=== PATIENT | male | born 1980 | race Caucasian/White ===

== ENCOUNTER 2022-03-12 00:15 | Inpatient (IN) | payer MEDICARE, MEDICAID, SELFPAY ==
[2022-03-12 00:16] VITALS: BP 128/77; PULSE 73; RESP 18; TEMP 36.6; O2SAT 96; BMI 33.5
[2022-03-12 00:42] LABS: Basophils % 0.3 %; Eosinophils # 0.1 10^3/uL (0.0-0.8); Hemoglobin 13.6 g/dL (11.7-16.6); Lymphocytes # 2.4 10^3/uL (0.8-4.8); Lymphocytes % 23.3 %; Mean Corpuscular Hemoglobin 32.4 pg (28.0-34.0); Mean Corpuscular Volume 95.2 fl (80-94); Mean Platelet Volume 10.4 fL (7.4-10.4); Monocytes # 0.7 10^3/uL (0.2-0.9); Monocytes % 6.9 %; Neutrophils # 7.01 10^3/uL (1.8-7.7); Neutrophils % 68.1 %; Nucleated Red Blood Cells % 0 %; Platelet Count 210 10^3/cmm (130-400); Red Cell Distribution Width 13.4 % (12.1-15.1); White Blood Count 10.3 10^3/uL (4.0-10.0)
--- NOTE | 2022-03-12 00:51 | ED.C_ITS ---
Documented by User: SEE Dunne 03/12/22 01:25 HPI - Psych General: Chief Complaint: Psychiatric Symptoms Stated Complaint: Anxiety/SI Time Seen by Provider: 03/12/22 00:28 History of Present Illness: Patient is a 41-year-old male comes to the ED via EMS with SI and anxiety. Patient states he has a history of depression and anxiety. He was recently on trazodone but has stopped taking it. He endorses having past suicide attempts. Today his girlfriend broke up with him and kicked him out of the house. He states over the past month his girlfriend has caused him a lot of stress. He is very sad about the break-up and was planning to kill himself tonight by slitting his wrist and jumping off a bridge. Denies any recent alcohol or drug use. 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 Denies any HI, auditory or visual hallucinations. Associated symptoms: Reports depression and suicidal ideation; Deny auditory hallucinations, visual hallucinations or homicidal ideation Review of Systems Const: Denies: fever(s), chills or fatigue Eyes: Denies: change in vision or eye discomfort ENMT: Denies: throat pain, odynophagia, nasal discharge or nasal congestion Card: Denies: chest pain, palpitations, edema, swelling of feet/ankles, dyspnea on exertion or orthopnea Resp: Denies: dyspnea, productive cough or non-productive cough GI: Denies: abdominal pain, nausea, vomiting, diarrhea, constipation or hematochezia : Denies: flank pain, difficulty urinating, dysuria or hematuria Musc: Denies: neck pain, back pain or extremity swelling Skin/Breast: Denies: rash or new lesions Neuro: Denies: headache(s), numbness in extremities or weakness in extremities Psych: Reports: anxiety, depression and suicidal ideation; Denies: visual hallucinations, auditory hallucinations or homicidal ideation [facility] ED PFSH: Medical History (Updated 04/04/22 @ 17:46 by Brooks Hollis MD) History of anxiety History of depression Surgical History (Updated 03/12/22 @ 00:54 by SEE Dunne) No pertinent past surgical history Physical Exam Const: COMMON NORMALS: patient oriented x3 and alert GENERAL APPEARANCE: cooperative HENMT: COMMON NORMALS: normocephalic HEAD & SCALP: normocephalic MOUTH: Normal oral and palatal mucosa present THROAT: posterior oropharynx normal and uvula midline Neck/C-Spine: COMMON NORMALS: supple GENERAL: Yes normal visual inspection Resp: COMMON NORMALS: normal respiratory effort, No retractions, No use of accessory muscles and clear to auscultation bilaterally AUSCULTATION: clear to auscultation bilaterally Cardio: COMMON NORMALS: regular rate, regular rhythm, S1 normal heart sound present, S2 normal heart sound present, No gallops present (Cardio), No clicks present (Cardio), No murmurs present (Cardio) and Peripheral pulses 2+ thr oughout RATE: regular rate RHYTHM: regular rhythm HEART SOUNDS: S1 normal heart sound present and S2 normal heart sound present PERIPHERAL PULSES: Peripheral pulses 2+ throughout GI: COMMON NORMALS: Normal to inspection, nondistended, normoactive bowel sounds present, Soft to palpation, non-tender and no masses PALPATION: Yes Soft to palpation : COMMON NORMALS: Yes no CVA tenderness BLADDER/KIDNEY EXAM: Yes no CVA tenderness Back/Pelvis: COMMON NORMALS: no CVA tenderness Extremity: COMMON NORMALS: normal to inspection Neuro: COMMON NORMALS: patient oriented x3 SENSORIUM/ORIENTATION: Yes alert GAIT: Yes Normal gait present Psych: COMMON NORMALS: mental status grossly normal, Normal thought process present, cooperative, speech normal, activity/motor behavior normal, denies hallucinations and denies homicidal ideation APPEARANCE: Yes grossly normal ATTITUDE: Yes calm ACTIVITY/MOTOR BEHAVIOR: Yes appropriate eye contact SPEECH: Yes normal speech MOOD & AFFECT: Yes sad and Yes tearful THOUGHT PROCESS: Normal thought process present THOUGHT CONTENT: Yes Suicidality present, No Homicidality present and No Hallucination(s) present ATTENTION/CONCENTRATION: Yes attention grossly intact and Yes concentration grossly intact MEMORY/COGNITION: Yes memory grossly intact and Yes cognition grossly intact Skin: GENERAL SKIN EXAM: dry skin Course Vital Signs: Vital signs: Vital Signs Temperature 98.2 F 03/14/22 12:41 Pulse Rate 58 L 03/14/22 12:41 Respiratory Rate 18 03/14/22 12:41 Blood Pressure 141/80 03/14/22 12:41 Pulse Oximetry 99 03/14/22 12:41 Oxygen Delivery La thod 03/14/22 06:00 [facility] - Psych Medical Decision Making Patient is a 41-year-old male comes to the ED with anxiety and SI. I performed the initial history, physical exam and lab work-up of patient. Patient care was then signed over to Dr. Hollis to manage care and dispo of patient.-Antonio Cervantes Lab Data I reviewed the patient's lab results. : 03/12/22 00:27 03/12/22 00: Laboratory Results WBC 10.3 10^3/uL (4.0-10.0) H 03/12/22 00:27 RBC 4.20 10^6/uL (4.1-5.3) 03/12/22 00: Hgb 13.6 g/dL (11.7-16.6) 03/12/22: Hct 40.0 % (42.0-52.0) L 03/12/22 00: MCV 95.2 fl (80-94) H 03/12/22 00: MCH 32.4 pg (28.0-34.0) 03/12/22 00: MCHC 34.0 g/dL (30.0-36.0) 03/12/22 00: RDW 13.4 % (12.1-15.1) 03/12/22: Plt Count 210 10^3/cmm (130-400) 03/12/22: MPV 10.4 fL (7.4-10.4) 03/12/22 00: Neut % (Auto) 68.1 % 03/12/22: Lymph % (Auto) 23.3 % 03/12/22:27 Sebastian % (Auto) 6.9 % 03/12/22 00:27 Eos % (Auto) 1.0 % 03/12/22 00:27 Baso % (Auto) 0.3 % 03/12/22 00:27 Neut # (Auto) 7.01 10^3/uL (1.8-7.7) 03/12/22 00: Lymph # (Auto) 2.4 10^3/uL (0.8-4.8) 03/12/22 00:27 Sebastian # (Auto) 0.7 10^3/uL (0.2-0.9) 03/12/22 00:27 Eos # (Auto) 0.1 10^3/uL (0.0-0.8) 03/12/22: Baso # (Auto) 0.0 10^3/uL (0.0-0.1) 03/12/22 00: Nucleated RBC % (auto) 0 % 03/12/22 Nucleated RBCs # 0.0 /100WBC 03/12/22: Sodium 140 mmol/L (136-145) 03/12/22: Potassium 3.6 mmol/L (3.5-5.1) 03/12/22: Chloride 107 mmol/L (98-107) 03/12/22: Carbon Dioxide 23 mmol/L (22-29) 03/12/22 Anion Gap 13.6 (5-19) 03/12/22 BUN 12 mg/dL (6-20) 03/12/22: Creatinine 0.7 mg/dL (0.7-1.2) 03/12/22 GFR Calculation 124.3 mL/min (90-130) 03/12/22 Glucose 123 mg/dL (65-115) H 03/12/22: Calculated Osmolality 291 mOsm/kg (285-295) 03/12/22 Calcium 8.4 mg/dL (8.5-10.5) L 03/12/22: Total Bilirubin 0.5 mg/dL (0.15-1.2) 03/12/22: AST 27 U/L (0-40) 03/12/22: ALT 37 U/L (0-41) 03/12/22: Alkaline Phosphatase 78 U/L (40-130) 03/12/22: Total Protein 6.9 g/dL (6.6-8.7) 03/12/22: Albumin 4.0 g/dL (3.5-5.2) 03/12/22: Globulin 2.9 g/dL (1.3-4.6) 03/12/22: Urine Color Yellow (Yellow) 03/12/22: Urine Appearance Clear (CLEAR) 09/16/22 00:27 Urine pH 5 (5-7) 03/12/22 00:27 Ur Specific [place] 1.020 (1.005-1.030) 03/12/22 00:27 Urine Protein Neg (Negative) 03/12/22 00:27 Urine Glucose (UA) Norm (Normal) 03/12/22 00:27 Urine Ketones Negative (Negative) 03/12/22 00:27 Urine Blood Neg (Negative) 03/12/22 00:27 Urine Nitrate Negative (Negative) 03/12/22 00:27 Urine Bilirubin Neg (Negative) 03/12/22 00:27 Urine Urobilinogen 1 mg/dL (Negative) H 03/12/22 00:27 Ur Leukocyte Esterase Negative (Negative) 03/12/22 00:27 Salicylates < 0.3 mg/dL (3-10) L 03/12/22 00:27 Urine Opiates Screen Negative ng/mL (Negative) 03/12/22 00:27 Acetaminophen < 5.0 ug/mL (10-30) L 03/12/22 00:27 Ur Barbiturates Screen Negative ng/mL (Negative) 03/12/22 00:27 Ur Phencyclidine Scrn Negative ng/mL (Negative) 03/12/22 00:27 Ur Amphetamines Screen Negative ng/mL (Negative) 03/12/22 00:27 U Benzodiazepines Scrn Negative ng/mL (Negative) 03/12/22 00:27 Urine Cocaine Screen Negative ng/mL (Negative) 03/12/22 00:27 U Marijuana (THC) Screen Positive ng/mL (Negative) H 03/12/22 00:27 Ethyl Alcohol 14 mg/dL (0-10) H 03/12/22 00:27 Discharge Plan Discharge Patient Disposition: Admitted As Inpatient Admit Provider: Gustavo Ortega Clinical Impression: Suicidal ideation Condition: Stable Discharge Diet: Regular Discharge Activity: Resume usual activity Sign Out Sign Out Data: Patient Sign Out occurred on 03/12/22 at 01:18. Patient's care was discussed, and care was transferred from to Brooks Hollis MD. Coding Level of Care Code ED Cost Control Supervisor for Chg Fwd Exam Comprehensive Documented by User: Brooks Hollis MD 04/04/22 17:46 HPI - Psych General: Chief Complaint: Psychiatric Symptoms Stated Complaint: Anxiety/SI Time Seen by Provider: 03/12/22 00:28 [facility] ED PFSH: Medical History (Updated 04/04/22 @ 17:46 by Brooks Hollis MD) History of anxiety History of depression Surgical History (Updated 03/12/22 @ 00:54 by SEE Dunne) No pertinent past surgical history Course Vital Signs: Vital signs: Vital Signs Temperature 98.2 F 03/14/22 12:41 Pulse Rate 58 L 03/14/22 12:41 Respiratory Rate 18 03/14/22 12:41 Blood Pressure 141/80 03/14/22 12:41 Pulse Oximetry 99 03/14/22 12:41 Oxygen Delivery Me thod 03/14/22 06:00 [facility] - Psych Medical Decision Making Patient is a 41-year-old male comes to the ED with anxiety and SI. I performed the initial history, physical exam and lab work-up of patient. Patient care was then signed over to Dr. Hollis to manage care and dispo of patient.-Antonio Cervantes I discussed this case with Antonio CUI. I personally saw and evaluated the patient and reperformed guzmán portions of E/M. I reviewed documentation. Brooks Hollis MD Emergency Medicine Lab Data : 03/12/22 00:27 03/12/22 00:27 Laboratory Results WBC 10.3 10^3/uL (4.0-10.0) H 03/12/22 00:27 RBC 4.20 10^6/uL (4.1-5.3) 03/12/22 00:27 Hgb 13.6 g/dL (11.7-16.6) 03/12/22 00:27 Hct 40.0 % (42.0-52.0) L 03/12/22 00:27 MCV 95.2 fl (80-94) H 03/12/22 00:27 MCH 32.4 pg (28.0-34.0) 03/12/22 00:27 MCHC 34.0 g/dL (30.0-36.0) 03/12/22 00: RDW 13.4 % (12.1-15.1) 03/12/22: Plt Count 210 10^3/cmm (130-400) 03/12/22 00: MPV 10.4 fL (7.4-10.4) 03/12/22 00: Neut % (Auto) 68.1 % 03/12/22: Lymph % (Auto) 23.3 % 03/12/22: Sebastian % (Auto) 6.9 % 03/12/22: Eos % (Auto) 1.0 % 03/12/22 00: Baso % (Auto) 0.3 % 03/12/22: Neut # (Auto) 7.01 10^3/uL (1.8-7.7) 03/12/22: Lymph # (Auto) 2.4 10^3/uL (0.8-4.8) 03/12/22: Sebastian # (Auto) 0.7 10^3/uL (0.2-0.9) 03/12/22: Eos # (Auto) 0.1 10^3/uL (0.0-0.8) 03/12/22: Baso # (Auto) 0.0 10^3/uL (0.0-0.1) 03/12/22 00: Nucleated RBC % (auto) 0 % 03/12/22: Nucleated RBCs # 0.0 /100WBC 03/12/22: Sodium 140 mmol/L (136-145) 03/12/22 00: Potassium 3.6 mmol/L (3.5-5.1) 03/12/22: Chloride 107 mmol/L (98-107) 03/12/22: Carbon Dioxide 23 mmol/L (22-29) 03/12/22: Anion Gap 13.6 (5-19) 03/12/22: BUN 12 mg/dL (6-20) 03/12/22 00: Creatinine 0.7 mg/dL (0.7-1.2) 03/12/22: GFR Calculation 124.3 mL/min (90-130) 03/12/22: Glucose 123 mg/dL (65-115) H 03/12/22: Calculated Osmolality 291 mOsm/kg (285-295) 03/12/22: Calcium 8.4 mg/dL (8.5-10.5) L 03/12/22: Total Bilirubin 0.5 mg/dL (0.15-1.2) 03/12/22: AST 27 U/L (0-40) 03/12/22: ALT 37 U/L (0-41) 03/12/22: Alkaline Phosphatase 78 U/L (40-130) 03/12/22: Total Protein 6.9 g/dL (6.6-8.7) 03/12/22: Albumin 4.0 g/dL (3.5-5.2) 03/12/22: Globulin 2.9 g/dL (1.3-4.6) 03/12/22: Urine Color Yellow (Yellow) 03/12/22: Urine Appearance Clear (CLEAR) 03/12/22: Urine pH 5 (5-7) 03/12/22: Ur Specific [place] 1.020 (1.005-1.030) 03/12/22: Urine Protein Neg (Negative) 03/12/22: Urine Glucose (UA) Norm (Normal) 03/12/22: Urine Ketones Negative (Negative) 03/12/22: Urine Blood Neg (Negative) 03/12/22: Urine Nitrate Negative (Negative) 03/12/22: Urine Bilirubin Neg (Negative) 03/12/22: Urine Urobilinogen 1 mg/dL (Negative) H 03/12/22: Ur Leukocyte Esterase Negative (Negative) 03/12/22: Salicylates < 0.3 mg/dL (3-10) L 03/12/22: Urine Opiates Screen Negative ng/mL (Negative) 03/12/22: Acetaminophen < 5.0 ug/mL (10-30) L 03/12/22: Ur Barbiturates Screen Negative ng/mL (Negative) 03/12/22 00:27 Ur Phencyclidine Scrn Negative ng/mL (Negative) 03/12/22 00:27 Ur Amphetamines Screen Negative ng/mL (Negative) 03/12/22 00:27 U Benzodiazepines Scrn Negative ng/mL (Negative) 03/12/22 00:27 Urine Cocaine Screen Negative ng/mL (Negative) 03/12/22 00:27 U Marijuana (THC) Screen Positive ng/mL (Negative) H 03/12/22 00:27 Ethyl Alcohol 14 mg/dL (0-10) H 03/12/22 00:27 Discharge Plan Discharge Patient Disposition: Admitted As Inpatient Admit Provider: Gustavo Ortega Clinical Impression: Suicidal ideation Condition: Stable Discharge Diet: Regular Discharge Activity: Resume usual activity Sign Out Sign Out Data: Patient Sign Out occurred on 03/12/22 at 01:18. Patient's care was discussed, and care was transferred from to Brooks Hollis MD. Coding Level of Care Code ED Cost Control Supervisor for Eric Fwd Exam Comprehensive
[2022-03-12 00:58] LABS: Add Urine Microscopic? NO; Charge for UA Resulting for Rev
[2022-03-12 01:00] LABS: Alanine Aminotransferase 37 U/L (0-41); Alcohol Level 14 mg/dL (0-10); Alkaline Phosphatase 78 U/L (40-130); Anion Gap 13.6 (5-19); Aspartate Amino Transferase 27 U/L (0-40); Blood Urea Nitrogen 12 mg/dL (6-20); Calcium 8.4 mg/dL (8.5-10.5); Carbon Dioxide 23 mmol/L (22-29); Chloride 107 mmol/L (98-107); Globulin 2.9 g/dL (1.3-4.6); Glomerular Filtration Rate 124.3 mL/min (90-130); Glucose 123 mg/dL (65-115); Osmolality Calculated 291 mOsm/kg (285-295); Potassium 3.6 mmol/L (3.5-5.1); Sodium 140 mmol/L (136-145); Total Bilirubin 0.5 mg/dL (0.15-1.2); Total Protein 6.9 g/dL (6.6-8.7)
[2022-03-12 01:09] LABS: Amphetamines Screen Urine Negative (Negative); Barbiturates Screen Urine Negative (Negative); Benzodiazepines Screen Urine Negative (Negative); Cocaine Screen Urine Negative (Negative); Opiate Screen Urine Negative (Negative); PCP Screen Urine Negative (Negative); THC Screen Urine Positive (Negative)
[2022-03-12 01:25] LABS: Acetaminophen < 5.0 ug/mL (10-30); Salicylate < 0.3 mg/dL (3-10)
[2022-03-12 01:30] LABS: Bilirubin Urine Neg (Negative); Blood Urine Neg (Negative); Glucose Urine UA Norm (Normal); Ketones Urine Negative (Negative); Leukocyte Esterase Urine Negative (Negative); Nitrate Urine Negative (Negative); Protein Urine Neg (Negative); Urine Appearance Clear (CLEAR); Urine Color Yellow (Yellow); Urobilinogen Urine 1 mg/dL (Negative); pH Urine 5 (5-7)
[2022-03-12] MEDS: LORazepam 1 mg Tablet PO (01:41)
[2022-03-12 04:31] VITALS: BP 142/86; PULSE 76; RESP 16; TEMP 36.7; O2SAT 96
[2022-03-12 06:00] VITALS: BP 116/67; PULSE 66; RESP 18; TEMP 36.4; O2SAT 98
[2022-03-12] MEDS: hyDROXYzine 25 mg Capsule 50 MG PO (09:58)
--- NOTE | 2022-03-12 10:04 | PC.NURSE ---
PT WAS ON UNIT PHONE SPEAKING TO SIGNIFICANT OTHER REQUESTING HIS BROTHERS PHONE NUMBER, PT WAS UPSET AND SHOUTED THAT HE WAS GOING TO BURN ALL YOUR HOUSES DOWN WENT TO SPEAK WITH PT IN HIS ROOM, PT VERBALIZES HE IS HURT AND UPSET AND HE SAID THINGS HE DIDNT MEAN BECAUSE ALL HE WANTS HIS BROTHERS NUMBER AND SHE WONT GIVE IT TO HIM. PT IS VISIBLY UPSET, TEARFUL AND TAKE PRN VISTRIL WITHOUT ISSUE, PT PROCEEDS TO SHOWER IN ROOM. PT ALSO STATES HE WONT CALL HER BACK AND GAVE THIS NURSE GIRLFRIENDS NUMBER FOR ME TO ATTEMPT TO GET PTS BROTHER NUMBER
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
[2022-03-12 14:00] VITALS: BP 143/82; PULSE 78; RESP 18; TEMP 35.5; O2SAT 97
[2022-03-12 19:55] VITALS: BP 157/92; PULSE 86; RESP 19; O2SAT 98
[2022-03-12] MEDS: trazodone 50 mg Tablet PO (20:02)
[2022-03-13 06:00] VITALS: BP 157/92; PULSE 86; RESP 19; TEMP 35.5; O2SAT 98
--- NOTE | 2022-03-13 09:13 | PC.NURSE ---
Nursing Behavioral Assessment Patient stated he slept well last night. He is in pain, but he states it is due to stress ulcers and his stomach is hurting (pain at a 6 on 0-10 scale). Patient denies si/hi. Also denies ah/vh. Patient states he is not feeling too depressed and rated it as a 3 on a 0-10 scale. Patient talked about the breakup with his girlfriend extensively and states he isn't going to contact with her when he leaves and intends not to get back with her. Patient also states he has talked to a few men that said they are wanting to help him out and will help him keep his job. Calm and cooperative and appears to have a positive outlook this morning.
[2022-03-13] MEDS: pantoprazole DR 40 mg Tablet PO (09:33)
[2022-03-13 13:01] VITALS: BP 154/80; PULSE 69; RESP 20; TEMP 36.6; O2SAT 97
--- NOTE | 2022-03-13 17:11 | W.PM.NPUPNS ---
Subjective NPU Subjective: Patient presents today reporting that he is feeling better. He reports he was to return to [place] because a job that he has is too good to lose it. He reports that his ex and he spoke and she is okay with returning to the area. We talked about likely discharge in the next 48 hours. Mental Status Exam MSE Comments: This is a well nourished, well developed white male in hospital scrubs with adequate grooming and eye contact. No abnormal movements except for mild psychomotor agitation. Cooperative with exam in mild distress. Speech was slightly decreased rate and volume. Mood described as better, affect is congruent. Thought process, organized. Thought content: patient denies suicidal or homicidal ideation, no delusions reported or noted and denies any auditory or visual hallucinations. Attention and concentration are intact and memory appeared reliable but none were formally tested. He is alert and oriented three times. Insight and judgment are fair. Impulse control is fair. Vitals/I&O/Wt Last Vital Signs Temp 97.9 F 03/13/22 13:01 Pulse 69 03/13/22 13:01 Resp 20 H 03/13/22 13:01 BP 154/80 03/13/22 13:01 Pulse Ox 97 03/13/22 13:01 O2 Del Method 03/13/22 13:01 Weight last 48 hrs Weight 108.862 kg Data NPU : 03/12/22 00:27 03/12/22 00:27 A&P Assessment and plan (1) Partner relational problem: Status: Acute (2) PTSD (post-traumatic stress disorder): Status: Acute (3) Major depressive disorder, recurrent: Status: Acute (4) Homicidal ideation: Status: Acute Plan This is a 41 year old white male with a history of trauma and genetic loading for mental health and addiction issues who presents are a recent conflict with his significant other reporting he has moved past the relationship and wants to be discharged so he can return to his work as he does not want to lose his job. 1. Start Trazodone 50 mg poq daily. 2. Encourage individual, group and milieu therapy 3. Continue q-15 minute check for safety 4. Recommend sober living treatment at the highest level of care to which the patient is willing to commit. Involuntary Hold Information 96 Hour Hold: 96 Hour Involuntary Admission: No Attestations NPU Medical Necessity Statement*: Inpatient hospitalization is medically necessary and the clinically appropriate intervention at this time. We will monitor medications and make changes as indicated. Likely length of stay is 1-3 days. Coding Level of Care Code Acute Application Integrator for Chg Fwd Diagnoses Partner relational problem Z63.0 PTSD (post-traumatic stress disorder) F43.10 Major depressive disorder, recurrent F33.9 Homicidal ideation R45.850
[2022-03-13] MEDS: alum-mag-hydroxide-sime 30 mL UDC PO (19:50)
[2022-03-13 19:52] VITALS: BP 138/78; PULSE 69; RESP 18; TEMP 36.8; O2SAT 96
[2022-03-14 06:00] VITALS: BP 141/80; PULSE 58; RESP 18; TEMP 36.8; O2SAT 99; BMI 33.5
[2022-03-14] MEDS: pantoprazole DR 40 mg Tablet PO (08:20)
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
[2022-03-14 12:41] VITALS: BP 141/80; PULSE 58; RESP 18; TEMP 36.8; O2SAT 99
== END 2022-03-14 12:49 | disposition home or self-care (01) | DRG 885 ==
LOC: ER 02:15 → NP 03:12
PROVIDERS: Physician Assistant; Admitting Provider Psychiatry & Neurology Psychiatry; Emergency Provider Emergency Medicine; Visit Provider Psychiatry & Neurology Psychiatry
DX: F33.9 Major depressive disorder, recurrent, unspecified (principal); F41.9 Anxiety disorder, unspecified; F17.210 Nicotine dependence, cigarettes, uncomplicated; Z63.0 Problems in relationship with spouse or partner; F43.10 Post-traumatic stress disorder, unspecified; R45.850 Homicidal ideations
CPT/HCPCS: 80053; 80306; 80307; 81003; 85025; 97150; 97165; 99285